=== PATIENT | male | born 1975 | race Caucasian/White ===

== ENCOUNTER 2017-06-19 15:27 | Emergency (ER) | payer OTHER ==
[~2017-06-19] VITALS: Ht 182.9 cm; Wt 92.5 kg
[~2017-06-19 15:27] MED LIST: triumeq PO
[2017-06-19 15:36] VITALS: Ht 182.9 cm; Wt 92.5 kg
[2017-06-19] MEDS ORDERED: BUPIVACAINE 0.25% (MPF) 10 ML 10 ML VIAL INJ ONE (16:30)
[2017-06-19 16:53] LABS: BASOPHIL # 0.1 10^3/ul (0.0-0.1); BASOPHILS % 0.6 % (0.0-2.0); EOSINOPHILS # 0.1 10^3/ul (0.0-0.5); EOSINOPHILS % 1.2 % (0.0-7.0); HEMATOCRIT 50.8 % (42.0-52.0); LYMPHOCYTES # 1.8 10^3/ul (0.8-2.9); LYMPHOCYTES % 20.7 % (15.0-51.0); MEAN CORPUSCULAR HGB CONC 37.4 g/dl (32.0-37.0); MEAN CORPUSCULAR VOLUME 88.3 fl (82.0-101.0); MEAN PLATELET VOLUME 9.7 fl (7.4-10.4); MONOCYTE # 0.8 10^3/ul (0.3-0.9); MONOCYTES % 9.4 % (0.0-11.0); NEUTROPHILS % 67.7 % (39.0-77.0); PLATELET COUNT 189 10^3/UL (140-415); RED BLOOD COUNT 5.75 10^6/ul (4.70-6.10); RED CELL DISTRIBUTION WIDTH 11.2 % (11.5-14.5); WHITE BLOOD COUNT 8.5 10^3/ul (4.8-10.8)
[2017-06-19 17:19] LABS: ALBUMIN 5.1 g/dl (3.3-4.9); ALBUMIN/GLOBULIN RATIO 1.37; BILIRUBIN,INDIRECT 0.6 mg/dl (0-1.1); BILIRUBIN,TOTAL 0.6 mg/dl (0.2-1.3); CALCIUM 9.7 mg/dl (8.4-10.2); CREATININE 0.75 mg/dl (0.61-1.24); POTASSIUM 4.1 mmol/L (3.5-5.1); TOTAL PROTEIN 8.8 g/dl (6.1-8.1)
--- NOTE | 2017-06-19 17:21 | RADRPT ---
PROCEDURE: XR Hip. CLINICAL INDICATION: 41 years of age, male. Pain and weakness. History of HIV and diabetes. TECHNIQUE: Two views of the left hip. COMPARISON: None available. FINDINGS: Normal alignment. Negative for evidence of acute fracture. Normal bone mineralization and no focal bone lesions. Joint space is preserved without evidence of arthritis. Negative for significant soft tissue abnormality. IMPRESSION: Unremarkable x-ray of the left hip. Cause for left hip pain is not evident. If there is clinical co ncern for occult fracture, recommend CT or MRI. RPTAT: HCTS Physician Jitendra Date Time Electronically viewed and signed by Physician Jitendra on 06/19/2017 17:21 CS/
--- NOTE | 2017-06-19 17:48 | RADRPT ---
PROCEDURE: CT LUMBAR SPINE WITHOUT CONTRAST: CLINICAL INDICATION: 41 years of age male. Low back pain. History of HIV and diabetes. . COMPARISON: None available. TECHNIQUE: CT of the lumbar spine was performed without intravenous contrast. Coronal and sagittal r eformatted images were obtained from the axial source images. Images were reviewed on a high-resolut [employer] PACS workstation. Dose information: Based on a 32 cm phantom, the estimated radiation dose (CTDIvol mGy) for each seri es in this exam is 25. The estimated cumulative dose (DLP mGy-cm) is 799. One or more of the following dose reduction techniques were used: - Automated exposure control. - Adjustment of the mA and/or kV according to patient size. - Use of iterative reconstruction technique. FINDINGS: There are small rudimentary ribs at T12. Using this numbering system, there are 5 non-rib bearing pepito mbar-type vertebra and the lumbar spine is imaged from T12 to the sacrum. Alignment: Normal. Vertebrae: Vertebral bodies and posterior elements are intact without acute fracture. Vertebral body heights are maintained. Bone mineral density appears normal. No suspicious bone lesio ns. T12-L1: No significant degenerative change. Negative for stenosis or nerve root compression. L1-L2: No significant degenerative change. Negative for stenosis or nerve root compression. L2-L3: No significant degenerative change. Negative for stenosis or nerve root compression. L3-L4: No significant degenerative change. Negative for stenosis or nerve root compression. L4-L5: There is a mild broad-based posterior left paracentral disc protrusion that contacts the thec al sac anteriorly (4/74). Minimal central canal stenosis. Negative for nerve root compression. L5-S1: Mild degenerative disc disease with disc space narrowing and small posterior osteophytes. The re is mild disc bulging without stenosis or nerve root compression. Extravertebral soft tissues: Normal. Visualized abdomen and pelvis: Atherosclerosis aorta. No aneurysm. There is calcification of the vas deferens in keeping with diabetes. Additional comment: None. IMPRESSION: Mild degenerative disc disease in the lower lumbar spine at L4-5 and L5-S1. Stenosis is mild without evidence of nerve root compression. RPTAT: HCTS Claudiay Sadro, Physician Date Time Electronically viewed and signed by Silvia Casarez, Physician on 06/19/2017 17:48 CS/
[2017-06-19] MEDS ORDERED: ZOLP5TAB PO (18:06)
[2017-06-19] MEDS ORDERED: HYDR-906 PO (18:06)
--- NOTE | 2017-06-19 20:50 | ERD ---
ER Documentation Chief Complaint Date/Time DATE: 06/19/17 TIME: 20:34 Chief Complaint LEFT HIP PAIN SINCE FRIDAY,DIFFICULTY WALKING HPI 41-year-old male present is complaining of left hip pain 2 days. Patient stated that the pain had a sudden onset, is severe. The pain is not constant, worse when he is lying down. No pain when he is standing. Able to walk without pain. The pain starts from left groin and radiates down his left thigh. Yesterday he also started having pain from his left buttock that radiates down to his posterior left upper leg. Patient reports numbness of his left foot. In addition, patient reports right foot drop for the past 3 weeks. Patient has history of HIV, diabetes, and hypertension. He has not taking any medications for his medical conditions for the past year. Denies fever or chills. Denies injury or falls. Denies shortness of breath. Denies numbness or weakness anywhere else. ROS All systems reviewed and are negative except as per history of present illness. Medications Home Meds Active Scripts Hydrocodone/Acetaminophen ([place] 5-325 Tablet) 1 Each Tablet, 1 TAB PO Q6H Y for PAIN, #20 TAB Prov:SHARITA MARTIN NP 06/19/17 Zolpidem Tartrate* (Ambien*) 5 Mg Tablet, 5 MG PO HS Y for INSOMNIA, #7 TAB Prov:SHARITA MARTIN NP 06/19/17 [triumeq] No Conflict Check, 1 PO DAILY, #10 Prov:JONI MANCILLA MD 03/19/15 Allergies Allergies: Coded Allergies: Sulfa (Sulfonamide Antibiotics) (Verified Allergy, Intermediate, RASH, 06/19) PMhx/Soc HIV positive, diabetes, hypertension History of Surgery: No Anesthesia Reaction: No Hx Neurological Disorder: No Hx Respiratory Disorders: No Hx Cardiac Disorders: No Hx Psychiatric Problems: Yes (PSYCHIATRIC PROBLEMS) Hx Miscellaneous Medical Probl: No (HIV) Hx Alcohol Use: Yes (occassionally) Hx Substance Use: No Hx Tobacco Use: Yes (3/4 pack/day) Smoking Status: Current every day smoker Physical Exam Vitals Vital Signs Date Time Temp Pulse Resp B/P Pulse Ox O2 Delivery O2 Flow Rate FiO2 06/19/17 15:36 98.1 78 18 176/98 98 Physical Exam General: Well-developed, well-nourished, conscious and coherent, in no distress Skin: Warm and dry without rash, good texture and turgor Head: Normocephalic without evidence of trauma Eyes: Sclera and conjunctivae normal; pupils equal, round, and reactive to light; extraocular movements are intact Neck: Supple without meningismus or adenopathy. Carotids are equal. Trachea midline. No bruits or JVD Chest: Normal AP diameter. Good expansion without retractions. Nontender. Lungs are clear to auscultate bilaterally with good tidal volume Heart: Regular rate and rhythm. No murmur, rub, or gallops heard Abdomen: Soft and nontender without masses, guarding, or rebound. Bowel sounds are active. No hepatosplenomegaly Back: Without spinal or CVA tenderness. Palpating the left buttock triggers radiating pain down his left leg. Extremities: Full range of motion. Good strength bilaterally. No clubbing, cyanosis, or edema. Peripheral pulses are intact. Neuro: Alert and oriented 4, GCS 15. Cranial nerves grossly intact. Motor and sensory exams nonfocal. Moves all extremities. Speech clear. Gait normal Result Diagram: 06/19/17 1640 06/19/17 1640 Results 24 hrs Laboratory Tests Test 06/19/17 16:40 White Blood Count 8.510^3/ul Red Blood Count 5.7510^6/ul Hemoglobin 19.0g/dl Hematocrit 50.8% Mean Corpuscular Volume 88.3fl Mean Corpuscular Hemoglobin 33.0pg Mean Corpuscular Hemoglobin Concent 37.4g/dl Red Cell Distribution Width 11.2% Platelet Count 33032^3/UL Mean Platelet Volume 9.7fl Neutrophils % 67.7% Lymphocytes % 20.7% Monocytes % 9.4% Eosinophils % 1.2% Basophils % 0.6% Nucleated Red Blood Cells % 0.0/100WBC Neutrophils # (Manual) 5.810^3/ul Lymphocytes # 1.810^3/ul Monocytes # 0.810^3/ul Eosinophils # 0.110^3/ul Basophils # 0.110^3/ul Nucleated Red Blood Cells # 0.010^3/ul Sodium Level 137mmol/L Potassium Level 4.1mmol/L Chloride Level 102mmol/L Carbon Dioxide Level 22mmol/L Anion Gap 17 Blood Urea Nitrogen 12mg/dl Creatinine 0.75mg/dl Glucose Level 237mg/dl Calcium Level 9.7mg/dl Total Bilirubin 0.6mg/dl Direct Bilirubin 0.00mg/dl Indirect Bilirubin 0.6mg/dl Aspartate Amino Transf (AST/SGOT) 31IU/L Alanine Aminotransferase (ALT/SGPT) 46IU/L Alkaline Phosphatase 44IU/L Total Protein 8.8g/dl Albumin 5.1g/dl Globulin 3.70g/dl Albumin/Globulin Ratio 1.37 Current Medications Medications (Trade) Dose Ordered Sig/Gregg Route PRN Reason Start Time Stop Time Status Last Admin Dose Admin Bupivacaine HCl (Marcaine 0.25% (Mpf) 10 ml) 10 ml ONCE ONCE INJ 06/19/17 16:30 06/19/17 16:31 DC 06/19/17 17:06 PROCEDURE: XR Hip. CLINICAL INDICATION: 41 years of age, male. Pain and weakness. History of HIV and diabetes. TECHNIQUE: Two views of the left hip. COMPARISON: None available. FINDINGS: Normal alignment. Negative for evidence of acute fracture. Normal bone mineralization and no focal bone lesions. Joint space is preserved without evidence of arthritis. Negative for significant soft tissue abnormality. IMPRESSION: Unremarkable x-ray of the left hip. Cause for left hip pain is not evident. If there is clinical concern for occult fracture, recommend CT or MRI. RPTAT: HCTS Physician Jitendra Date Time Electronically viewed and signed by Physician Jietndra on 06/19/2017 17: 21 CS/ CC: SHARITA MARTIN NP PROCEDURE: CT LUMBAR SPINE WITHOUT CONTRAST: CLINICAL INDICATION: 41 years of age male. Low back pain. History of HIV and diabetes. . COMPARISON: None available. TECHNIQUE: CT of the lumbar spine was performed without intravenous contrast. Coronal and sagittal reformatted images were obtained from the axial source images. Images were reviewed on a high-resolution PACS workstation. Dose information: Based on a 32 cm phantom, the estimated radiation dose ( CTDIvol mGy) for each series in this exam is 25. The estimated cumulative dose ( DLP mGy-cm) is 799. One or more of the following dose reduction techniques were used: - Automated exposure control. - Adjustment of the mA and/or kV according to patient size. - Use of iterative reconstruction technique. FINDINGS: There are small rudimentary ribs at T12. Using this numbering system, there are 5 non-rib bearing lumbar-type vertebra and the lumbar spine is imaged from T12 to the sacrum. Alignment: Normal. Vertebrae: Vertebral bodies and posterior elements are intact without acute fracture. Vertebral body heights are maintained. Bone mineral density appears normal. No suspicious bone lesions. T12-L1: No significant degenerative change. Negative for stenosis or nerve root compression. L1-L2: No significant degenerative change. Negative for stenosis or nerve root compression. L2-L3: No significant degenerative change. Negative for stenosis or nerve root compression. L3-L4: No significant degenerative change. Negative for stenosis or nerve root compression. L4-L5: There is a mild broad-based posterior left paracentral disc protrusion that contacts the thecal sac anteriorly (4/74). Minimal central canal stenosis. Negative for nerve root compression. L5-S1: Mild degenerative disc disease with disc space narrowing and small posterior osteophytes. There is mild disc bulging without stenosis or nerve root compression. Extravertebral soft tissues: Normal. Visualized abdomen and pelvis: Atherosclerosis aorta. No aneurysm. There is calcification of the vas deferens in keeping with diabetes. Additional comment: None. IMPRESSION: Mild degenerative disc disease in the lower lumbar spine at L4-5 and L5-S1. Stenosis is mild without evidence of nerve root compression. RPTAT: HCTS Physician Jitendra Date Time Electronically viewed and signed by Physician Jitendra on 06/19/2017 17: 48 CS/ CC: SHARITA MARTIN [employer] FINISHER Procedures/MDM 41-year-old male with history of HIV positive, diabetes, and hypertension presented ED with sciatic pain 2 days. X-ray of the left hip is unremarkable. CT of the lumbar spine showed mild degenerative disc disease in the lower lumbar spine, and mild stenosis without stenosis is mild without evidence of nerve root compression. I suspect that his sciatic pain is due to muscle spasm rather than disc herniation. I doubt spinal fracture, subluxation, or disc herniation. I doubt spinal epidural abscess, cauda equina syndrome. However, patient is HIV positive and not being treated at this time, I have high concern for possible advancement of HIV/AIDS progression that may have caused patient's symptoms. Patient given referral to neurologist, Dr. Stanford for neurology follow-up. Patient also encouraged to follow-up with his PCP to resume HIV and diabetes treatment. Procedure note: Trigger point injection Trigger point injection performed by me. 10 mL of bupivacaine is injected into left buttock. Total number muscle groups injected: 1. Patient reports improvement of pain after the trigger point injection. Patient appears well, stable for discharge and outpatient management. Medical decision making shared with patient and family. Education provided to patient and family. Patient and family expressed understanding of the plan. Medications on discharge: [place]. Follow-up: Primary care provider in 2-3 days or return to ED if worse. Disclaimer: Inadvertent spelling and grammatical errors are likely due to EHR/ dictation software use and do not reflect on the overall quality of patient care. Also, please note that the electronic time recorded on this note does not necessarily reflect the actual time of the patient encounter. Departure Diagnosis: Primary Impression: Sciatica Condition: Stable Patient Instructions: Understanding Sciatica Referrals: CLARA STANFORD MD [facility] Hours: Fri-Fri 9:00 AM - 5:00 PM Additional Instructions: Call your primary care doctor TOMORROW for an appointment during the next 2-3 days.See the doctor sooner or return here if your condition worsens before your appointment time. Follow up with a neurologist. SHARITA MARTIN NP Jun 19, 2017 20:45
== END 2017-06-19 18:17 | disposition home or self-care (01) ==
LOC: FTE 15:27
DX: M54.32 Sciatica, left side (principal); E11.9 Type 2 diabetes mellitus without complications; I10 Essential (primary) hypertension; F17.210 Nicotine dependence, cigarettes, uncomplicated
CPT/HCPCS: 36415; 72131; 73510; 80053; 85025

== ENCOUNTER 2017-06-21 22:18 | Emergency (ER) | payer OTHER ==
[~2017-06-21] VITALS: Wt 92.0 kg
[~2017-06-21 22:18] MED LIST changes: +HYDR-906 PO; +ZOLP5TAB PO
--- NOTE | 2017-06-21 23:58 | ERD ---
ER Documentation Chief Complaint Date/Time DATE: 06/21/17 TIME: 23:50 Chief Complaint Hip pain since HPI This 41-year-old male patient presents to emergency department for lumbar pain, sciatica pain radiating down left hip, buttocks, down to toes. Patient has documentation of mild degenerative disc disease in the lower lumbar spine at L4- 5 and L5-S1 stenosis is mild without evidence of nerve root compression. As read from CT lumbar spine without contrast from 06/19/2017.Spinal stenosis and herniated disk pain here treated with [place] 5/325, medication not working, pt has appointment with [facility]. pt report that the pain just started last week, w/o injury. pt radiates down leg and to toes ROS All systems reviewed and are negative except as per history of present illness. Medications Home Meds Active Scripts Hydrocodone/Acetaminophen ([place] 5-325 Tablet) 1 Each Tablet, 1 TAB PO Q6H Y for PAIN, #20 TAB Prov:SHARITA MARTIN NP 06/19/17 Zolpidem Tartrate* (Ambien*) 5 Mg Tablet, 5 MG PO HS Y for INSOMNIA, #7 TAB Prov:SHARITA MARTIN NP 06/19/17 [triumeq] No Conflict Check, 1 PO DAILY, #10 Prov:JONI MANCILLA MD 03/19/15 Allergies Allergies: Coded Allergies: Sulfa (Sulfonamide Antibiotics) (Verified Allergy, Intermediate, RASH, 06/19) PMhx/Soc History of Surgery: No Anesthesia Reaction: No Hx Neurological Disorder: No Hx Respiratory Disorders: No Hx Cardiac Disorders: No Hx Psychiatric Problems: Yes (PSYCHIATRIC PROBLEMS) Hx Miscellaneous Medical Probl: No (HIV, spinal stenosis, peripheral neuropathy , herniated disk, chronic pain) Hx Alcohol Use: Yes (occassionally) Hx Substance Use: No Hx Tobacco Use: Yes (3/4 pack/day) Smoking Status: Current every day smoker Physical Exam Vitals Vital Signs Date Time Temp Pulse Resp B/P Pulse Ox O2 Delivery O2 Flow Rate FiO2 06/21/17 22:45 98.8 118 20 158/100 100 Vitals stable, triage notes reviewed Physical Exam Const: Well-nourished well-appearing well-hydrated male patient no acute distress Head: Atraumatic Eyes: Normal Conjunctiva ENT: Normal External Ears, Nose and Mouth. Neck: Full range of motion..~ No meningismus. Resp: Clear to auscultation bilaterally Cardio: Regular rate and rhythm, no murmurs Abd: Soft, non tender, non distended. Normal bowel sounds Skin: No petechiae or rashes Back Exam: Skin: No bruising or rash Compartments: Soft Motor: Full range of motion, Palpating the left buttock triggers radiating pain down his left leg. Sensation: Intact to light touch throughout Bones: Without spinal or CVA tenderness. Ext: No cyanosis, or edema Neur: Awake and alert Psych: Normal Mood and Affect Results 24 hrs Current Medications Medications (Trade) Dose Ordered Sig/Gregg Route PRN Reason Start Time Stop Time Status Last Admin Dose Admin Oxycodone/ Acetaminophen (Percocet (5/ 325)) 1 tab ONCE ONCE PO 06/22/17 00:00 06/22/17 00:01 DC 06/22/17 00:12 Procedures/MDM This 41-year-old male patient, HIV positive, presents to emergency department for pain control. Patient was here on 06/19/2017 received trigger point injection in [place], as well as [facility]. Patient reports no current is not helping with pain control. Has an appointment with [facility] [place] in 2 days. Is requesting stronger pain medication. Patient received a full evaluation to rule out any worsening pathology related to HIV status on his last visit, CAT scan documents degenerative disc disease, disc space narrowing with osteophytes L4-L5, L5-S1. No root compression was documented. I do not feel that CT needs to be repeated. Patient given Percocet 5/325 will be discharged home with Percocet 20 count. Instructed that he would not be provided anymore pain medication. Patient is stable with no new complaints during ER course, clinically there is no current evidence to suggest cauda equina syndrome, spinal abscess or any other emergent condition appearing to require further evaluation or hospitalization. I feel the patient is stable for discharge at this time. I have discussed results, examination findings, the treatment plan with the patient and family present prior to discharge. Indications for emergent reevaluation, side effects of medication were also discussed. All questions were answered. Patient verbalizes understanding and agrees with plan of care. Departure Diagnosis: Primary Impression: Spinal stenosis Spinal region: lumbosacral Qualified Code: M48.07 - Spinal stenosis of lumbosacral region Condition: Good Patient Instructions: Back Pain W/ Sciatica Additional Instructions: Thank you for for coming to [facility] for your care today. Please ask your nurse or provider if you have questions about your care today and do not leave until all your questions have been answered. Please use any medications given as directed and follow-up with your doctor (or the doctor you were referred to) in the next 2-3 days. If you do not have a primary care doctor you may follow up at the [facility] [place], [place] (listed below). You may also use motrin and tylenol as needed for fever and/or pain unless instructed otherwise by your provider or nurse. Indications for more urgent follow-up have been discussed, but you may return to the Emergency Department at ANY time for any worrisome or worsening symptoms. If you have abdominal pain, please know that no test or exam you received is perfect and you should follow up within 8 hours for continued pain. If you had any imaging studies today, such as an X-Ray or CT Scan, these studies will be reviewed later by a radiologist. You will be called if there are important findings that were not identified today, so make sure the contact information you provided at registration is correct. If you received any narcotic pain control medicine today, such as Vicodin, Morphine or Dilaudid, your coordination and judgment may be affected for a number of hours. Please do not drive or operate heavy machinery, and you may want someone to assist you at home. If you were given a prescription for narcotic medication, be aware that it is very addictive- use sparingly and only if necessary. FERMIN MARIN Jun 21, 2017 23:58
[2017-06-22] MEDS ORDERED: OXYCODONE/ACETAMINOPHEN (5/325) TAB PO ONE
[2017-06-22] MEDS ORDERED: OXYC-279 PO (01:25)
[2017-06-22 01:32] VITALS: BP 156/90; PULSE 100; RESP 16; TEMP 98.6
== END 2017-06-22 01:34 | disposition home or self-care (01) ==
LOC: FTE 22:18
DX: M48.07 Spinal stenosis, lumbosacral region (principal); F17.210 Nicotine dependence, cigarettes, uncomplicated
CPT/HCPCS: 99283

== ENCOUNTER 2017-06-26 09:55 | Emergency (ER) | payer SELFPAY ==
[~2017-06-26] VITALS: Ht 180.3 cm; Wt 94.0 kg
[~2017-06-26 09:55] MED LIST changes: +OXYC-279 PO
[2017-06-26 10:17] VITALS: Ht 180.3 cm; Wt 94.0 kg
[2017-06-26] MEDS ORDERED: METF500T4 PO (22:30)
[2017-06-26] MEDS ORDERED: LISI10TA2 PO (22:30)
[2017-06-26] MEDS ORDERED: IBUP-1542 PO (22:32)
[2017-06-26] MEDS ORDERED: CLIN-73 PO (22:32)
== END 2017-06-26 11:10 | disposition left against medical advice (07) ==
LOC: FTE 09:55
DX: Z53.21 Procedure and treatment not carried out due to patient leaving prior to being seen by health care provider (principal)

== ENCOUNTER 2017-06-26 20:12 | Emergency (ER) | payer OTHER ==
[~2017-06-26] VITALS: Ht 182.9 cm; Wt 80.0 kg
[2017-06-26 20:15] VITALS: Ht 182.9 cm; Wt 80.0 kg
[2017-06-26] MEDS ORDERED: KETOROLAC 30 MG INJ IV STA (22:19)
[2017-06-26] MEDS ORDERED: LISI10TA2 PO (22:30)
[2017-06-26] MEDS ORDERED: CLINDAMYCIN 600 MG/D5W (PMX) 50 ML IVPB SCH (22:30)
[2017-06-26] MEDS ORDERED: METF500T4 PO (22:30)
--- NOTE | 2017-06-26 22:30 | ERD ---
ER Documentation Chief Complaint Date/Time DATE: 06/26/17 TIME: 22:26 Chief Complaint abcess @ groin area HPI 41-year-old male presents to emergency department for complaints of right swelling that started 3 weeks ago, patient states that he is tried to squeeze the area, was able to squeeze pustular discharge. Patient continues to have pain and redness of affected area. Patient denies any fever or chills. Patient is diabetic. Patient describes the pain as sharp pain, 4/10 scale, as was upon touching the area. Patient denies any other symptoms ROS All systems reviewed and are negative except as per history of present illness. Medications Home Meds Active Scripts Ibuprofen* (Motrin*) 600 Mg Tab, 600 MG PO Q6H Y for PAIN AND OR ELEVATED TEMP, #30 TAB Prov:TUNDE MELGAR NP 06/26/17 Clindamycin Hcl* (Clindamycin Hcl*) 300 Mg Capsule, 300 MG PO TID for 10 Days, CAP Prov:TUNDE MELGAR NP 06/26/17 Oxycodone HCl/Acetaminophen (Percocet 5-325 mg Tablet) 1 Each Tablet, 1 EACH PO Q8, #20 TAB Prov:TOMAS,FERMIN 06/22/17 Hydrocodone/Acetaminophen ([place] 5-325 Tablet) 1 Each Tablet, 1 TAB PO Q6H Y for PAIN, #20 TAB Prov:SHARITA MARTIN NP 06/19/17 Zolpidem Tartrate* (Ambien*) 5 Mg Tablet, 5 MG PO HS Y for INSOMNIA, #7 TAB Prov:SHARITA MARTIN NP 06/19/17 [triumeq] No Conflict Check, 1 PO DAILY, #10 Prov:JONI MANCILLA MD 03/19/15 Reported Medications Lisinopril* (Lisinopril*) Unknown Strength Tablet, PO DAILY, #30 TAB 06/26/17 Metformin* (Glucophage*) Unknown Strength Tab, PO BID, #20 TAB 06/26/17 Allergies Allergies: Coded Allergies: Sulfa (Sulfonamide Antibiotics) (Verified Allergy, Intermediate, RASH, 06/19) PMhx/Soc History of Surgery: No Anesthesia Reaction: No Hx Neurological Disorder: No Hx Respiratory Disorders: No Hx Cardiac Disorders: Yes (htn, dm) Hx Psychiatric Problems: Yes (PSYCHIATRIC PROBLEMS) Hx Miscellaneous Medical Probl: No (HIV, spinal stenosis, peripheral neuropathy , herniated disk, chronic pain) Hx Alcohol Use: Yes (occassionally) Hx Substance Use: No Hx Tobacco Use: Yes (3/4 pack/day) FmHx Family History: No coronary disease, No diabetes, No other Physical Exam Vitals Vital Signs Date Time Temp Pulse Resp B/P Pulse Ox O2 Delivery O2 Flow Rate FiO2 06/26/17 20:15 97.2 96 19 147/104 97 Physical Exam GENERAL: The patient is well developed and appropriate for usual state of health, in no apparent distress. CHEST: Clear to auscultation bilaterally. There are no rales, wheezes or rhonchi. HEART: Regular rate and rhythm. No murmurs, clicks, rubs or gallops. No S3 or S4. ABDOMEN: Soft, nontender and nondistended. Good bowel sounds. No rebound or guarding. No gross peritonitis. No gross organomegaly or masses. No Mejia sign or McBurney point tenderness. BACK: No midline or flank tenderness. EXTREMITIES: Equal pulses bilaterally. There is no peripheral clubbing, cyanosis or edema. No focal swelling or erythema. Full range of motion. Grossly neurovascularly intact. NEURO: Alert and oriented. Cranial nerves 2-12 intact. Motor strength in all 4 extremities with 5/5 strength. Sensation grossly intact. Normal speech and gait. SKIN: 2 x 3 cm erythematous indurated area in the right groin area, nonfluctuant at this time. Tender on palpation. There is no apparent petechia. The skin is warm and dry. HEMATOLOGIC AND LYMPHATIC: There is no evidence of excessive bruising or lymphedema. No gross cervical, axillary, or inguinal lymphadenopathy. Results 24 hrs Current Medications Medications (Trade) Dose Ordered Sig/Gregg Route PRN Reason Start Time Stop Time Status Last Admin Dose Admin Clindamycin HCl/ Dextrose (Cleocin 600 Mg/ D5W (Pmx)) 50 ml @ 50 mls/hr ONCE IVPB 06/26/17 22:30 06/26/17 23:29 Ketorolac Tromethamine (Toradol) 30 mg ONCE STAT IV 06/26/17 22:19 06/26/17 22:20 DC Ordered Cleocin and IV Toradol to be given given here in the emergency department for relief of pain and initial treatment of the abscess, upon calling pt for treatment, unable to be found, unable to contact, pt eloped, was stable prior to eloping. Procedures/MDM Medical Decision making: Patient symptoms leg is consistent with a soft tissue abscess, this time, no fluctuance, incision and drainage not indicated at this time, she is diabetic was treated with IV clindamycin was ordered here in emergency department and IV Toradol for pain but eloped prior to treatment, patient is not febrile at this time, appears well and is hemodynamically stable , no symptoms of any sepsis at this time. Patient was written Rx for clindamycin to go home with but didnt get paperworks because he eloped, is advised to return in 48 hours for reevaluation and recheck. Patient was advised to return to emergency department sooner for any worsening symptoms. Disposition: Home. Stable. Departure Diagnosis: Primary Impression: Soft tissue abscess Condition: Stable Patient Instructions: Abscess, Antiobiotic Treatment Only TUNDE MELGAR NP Jun 26, 2017 22:30
[2017-06-26] MEDS ORDERED: IBUP-1542 PO (22:32)
[2017-06-26] MEDS ORDERED: CLIN-73 PO (22:32)
== END 2017-06-26 22:55 | disposition left against medical advice (07) ==
LOC: FTE 20:12
DX: L02.214 Cutaneous abscess of groin (principal); I10 Essential (primary) hypertension; E11.9 Type 2 diabetes mellitus without complications; F17.210 Nicotine dependence, cigarettes, uncomplicated; Z79.84 Long term (current) use of oral hypoglycemic drugs
CPT/HCPCS: 99283

== ENCOUNTER 2017-08-05 09:15 | Observation (INO) | payer OTHER ==
[2017-08-05] VITALS (13 sets, daily range): BP systolic 140–175; BP diastolic 43–101; PULSE 86–112; RESP 10–19
[~2017-08-05] VITALS: Ht 182.9 cm; Wt 88.5 kg
[~2017-08-05 09:15] MED LIST changes: +CEFAZOLIN 2 GM/50 ML (PMX) 50 ML IVPB SCH; +CLIN-73 PO; +IBUP-1542 PO; +LACTATED RINGER'S 1,000 ML IV* SCH; +LISI10TA2 PO; +METF500T4 PO
[2017-08-05] MEDS ORDERED: METF1000 PO (09:47)
[2017-08-05] MEDS ORDERED: LISI10TA2 PO (09:47)
[2017-08-05] MEDS ORDERED: OXYC-209 PO (09:53)
[2017-08-05] MEDS ORDERED: CEFAZOLIN 1 GM INJ ONE (10:06)
[2017-08-05] MEDS ORDERED: PROPOFOL 20 ML ONE (10:06)
[2017-08-05] MEDS ORDERED: NEOSTIGMINE 3 MG/3 ML SYRINGE ONE (10:06)
[2017-08-05] MEDS ORDERED: ROCURONIUM 50 MG INJ ONE (10:06)
[2017-08-05] MEDS ORDERED: FENTAnyl 50 MCG/ML VIAL ONE (10:08)
[2017-08-05] MEDS ORDERED: MIDAZOLAM 1 MG/ML 2 ML INJ ONE (10:08)
[2017-08-05] MEDS ORDERED: ONDANSETRON 4 MG INJ ONE (10:09)
[2017-08-05] MEDS ORDERED: DEXAMETHASONE 4 MG/ML 1 ML INJ ONE (10:09)
[2017-08-05] MEDS ORDERED: SUGAMMADEX SODIUM 200 MG/2 ML VIAL IV ONE (11:37)
[2017-08-05] MEDS ORDERED: 1/2 NS + KCL 20 MEQ 1,000 ML IV SCH (11:52)
--- NOTE | 2017-08-05 11:52 | HPN ---
Date/Time of Note Date/Time of Note DATE: 08/05/17 TIME: 11:51 Interval H&P Admission Note Pt. seen H&P reviewed: No system changes SALVADOR BRIGHT PA-C Aug 05, 2017 11:52
[2017-08-05] MEDS ORDERED: ZOLPIDEM 5 MG TAB PO PRN (12:00)
[2017-08-05] MEDS ORDERED: NALOXONE (0.4 MG/ML) INJ IV PRN (12:00)
[2017-08-05] MEDS ORDERED: ONDANSETRON 4 MG INJ IV PRN ×2 (12:00→13:30)
[2017-08-05] MEDS ORDERED: HYDROmorphONE 0.5 MG/0.5 ML SYG IV PRN (12:00)
[2017-08-05] MEDS ORDERED: CEPASTAT LOZENGE MT PRN (12:00)
[2017-08-05] MEDS ORDERED: ACETAMINOPHEN 325 MG TAB PO PRN (12:00)
[2017-08-05] MEDS ORDERED: CYCLOBENZAPRINE 10 MG TAB PO PRN (12:00)
[2017-08-05] MEDS ORDERED: BISACODYL 10 MG SUPP PR PRN (12:00)
[2017-08-05] MEDS ORDERED: OXYCODONE/ACETAMINOPHEN (10/325) TAB PO PRN ×2 (12:00)
[2017-08-05] MEDS ORDERED: CEFAZOLIN 1 GM/50 ML (PMX) 50 ML IVPB SCH (12:00)
[2017-08-05] MEDS ORDERED: DIPHENHYDRAMINE 50 MG INJ IV PRN ×2 (12:00→13:30)
[2017-08-05] MEDS ORDERED: AL HYDROX/MG HYDROX/SIMETH 30 ML CUP PO PRN (12:00)
[2017-08-05] MEDS ORDERED: THROMBIN 5000 UNIT VIAL ONE (12:05)
[2017-08-05] MEDS ORDERED: SURGIFOAM POWDER 1 GM KIT ONE (12:05)
[2017-08-05] MEDS ORDERED: POLYMYXIN/BACITRACIN 1L IRRIG ONE (12:05)
[2017-08-05] MEDS ORDERED: BUPIVACAINE 0.5%/EPI (SDV) 30 ML INJ ONE (12:37)
[2017-08-05] MEDS ORDERED: LABETALOL HCL 20MG INJ ONE (12:59)
[2017-08-05] MEDS ORDERED: THROMBIN 5000 UNIT VIAL TOP ONE (13:04)
[2017-08-05] MEDS ORDERED: POLYMYXIN/BACITRACIN 1L IRRIG IRR ONE (13:04)
[2017-08-05] MEDS ORDERED: MEPERIDINE 25 MG INJ IV PRN (13:30)
[2017-08-05] MEDS ORDERED: hydrALAzine 20 MG INJ IV PRN (13:30)
[2017-08-05] MEDS ORDERED: HYDROmorphONE (0.2 MG/ML) 10ML SYG IV PRN (13:30)
[2017-08-05] MEDS ORDERED: MIDAZOLAM 1 MG/ML 2 ML INJ IV PRN (13:30)
[2017-08-05] MEDS ORDERED: LABETALOL HCL 20MG INJ IV PRN (13:30)
[2017-08-05] MEDS ORDERED: OXYCODONE/ACETAMINOPHEN (5/325) TAB PO PRN ×2 (13:30)
[2017-08-05] MEDS ORDERED: FENTAnyl 50 MCG/ML VIAL IV PRN ×3 (13:30)
[2017-08-05] MEDS ORDERED: EPHEDrine SULFATE 50 MG/5 ML SYG IV PRN (13:30)
[2017-08-05] MEDS ORDERED: ALBUTEROL 0.083% (NEB) 2.5 MG/3 ML AMP HHN PRN (13:30)
[2017-08-05] MEDS ORDERED: IPRATROPIUM (NEB) 0.5 MG/2.5 ML AMP HHN PRN (13:30)
[2017-08-05] MEDS ORDERED: TRIMETHOBENZAMIDE 100 MG/ML VIAL IM PRN (13:30)
[2017-08-05] MEDS ORDERED: BUPIVACAINE 0.25% (MPF) 30 ML INJ ONE (13:52)
[2017-08-05] MEDS ORDERED: HYDROmorphONE 0.2 MG/ML PCA ONE (14:43)
--- NOTE | 2017-08-05 14:49 | SIPON ---
Date/Time of Note Date/Time of Note DATE: 08/05/17 TIME: 14:44 Operative Report Preoperative Diagnosis Lumbosacral disc herniation with radiculopathy Postoperative Diagnosis Lumbosacral disc herniation with radiculopathy Operation/Procedure Performed Bilateral lumbosacral discectomy Surgeon see signature line certified ophthalmic surgical assistant MATHEW Chou Anesthesia: general Estimated blood loss: 10 - 50 ml's Transfusion Required none Specimen L5-S1 disc Grafts/Implants none Complications none TEQUILA PARK MD Aug 05, 2017 14:49
[2017-08-05] MEDS: HYDROmorphONE (0.2 MG/ML) 10ML SYG IV PRN ×6 (14:56→15:32)
--- NOTE | 2017-08-05 16:15 | RADRPT ---
PROCEDURE: Intraoperative imaging of the lumbar spine with fluoroscopy. CLINICAL INDICATION: Back pain. Intraoperative. TECHNIQUE: 6 images of the lumbar spine were obtained in the operating room with an image intensif ier. No radiologist was in attendance. Fluoroscopy time is 8.9 seconds. COMPARISON: No prior study is available for comparison. FINDINGS: For the purposes of this report, the last apparent true disc level is considered to be L5-S1. Based on this, the posterior surgical instrument is present overlying the L5-S1 level. IMPRESSION: 1. Intraoperative imaging of the lumbar spine. RPTAT: QQ .Abdias Rodriguez MD, Date Time Electronically viewed and signed by .Abdias Rodriguez MD, on 08/05/2017 16:15 .R/
--- NOTE | 2017-08-05 16:32 | CONS ---
Date/Time of Note Date/Time of Note DATE: 08/05/17 TIME: 16:30 Assessment/Plan Assessment/Plan Problems: (1) Status post lumbar microdiscectomy Onset Date: ~ 08/05/2017 Status: Acute Comment: Stable postop. Concur with discharge home (2) Diabetes mellitus type 2 in nonobese Status: Chronic Comment: Stable postop concur with discharge home (3) Essential hypertension Status: Chronic Comment: Stable postop concur with discharge home Consultation Date/Type/Reason Admit Date/Time Aug 05, 2017 at 11:56 Initial Consult Date August 05, 2017 Type of Consultation: Internal medicine Reason for Consultation Postop care diabetes; hypertension; HIV disease Referring Provider: TEQUILA LEYVA MD 24 HR Interval Summary Free Text/Dictation 41-year-old male with significant anxiety disorder who is status post spinal surgery. He has been on the floor roughly 1/2 hour as inform the staff that he wishes exorcises option for being discharged today. Please note Dr. Leyva the surgeon had actually given that to the patient as an option. Constitutional: no complaints Detailed Summary ENT: no complaints Respiratory: no complaints Cardiovascular: no complaints Gastrointestinal: no complaints Exam/Review of Systems Vital Signs Vitals Vital Signs Date Time Temp Pulse Resp B/P Pulse Ox O2 Delivery O2 Flow Rate FiO2 08/05/17 15:43 98 16 142/70 95 Room Air 08/05/17 14:57 98.2 08/05/17 14:48 2.0 Exam Constitutional: alert, oriented Respiratory: clear to auscultation, normal air movement Cardiovascular: nl pulses, regular rate and rhythm Neurological: FOOT AND ANKLE SURGEON II-XII intact, nl mental status, nl speech, nl strength, other Results Results 24 hrs Laboratory Tests Test 08/05/17 09:48 Bedside Glucose 172 Medications Medications Current Medications Lactated Ringer's 1,000 ml @ 20 mls/hr Q24H IV* ; Start 08/05/17 at 06:00; Stop 08/07/17 at 07:59 Potassium Chloride/Sodium Chloride (1/2 NS + KCl 20 Meq) 1,000 ml @ 100 mls/hr Q10H IV ; Start 08/05/17 at 11:52 Oxycodone/ Acetaminophen (Endocet (10/ 325)) 1 tab Q4H PRN PO PAIN LEVEL 1-5; Start 08/05/17 at 12:00 Oxycodone/ Acetaminophen (Endocet (10/ 325)) 2 tab Q4H PRN PO PAIN LEVEL 6-10; Start 08/05/17 at 12:00 Hydromorphone HCl 0.2 mg 0.2 mg Q1H PRN IV BREAKTHROUGH PAIN; Start 08/05/17 at 12:00 Cefazolin Sodium (Ancef 1 Gm/50 ml (Pmx)) 50 ml @ 100 mls/hr Q8H IVPB ; Start 08/05/17 at 12:00; Stop 08/06/17 at 04:29 Ondansetron HCl (Zofran Inj) 4 mg Q6H PRN IV NAUSEA AND/OR VOMITING; Start at 12:00 Bisacodyl (Dulcolax Supp) [address] CONSTIPATION; Start 08/05/17 at 12:00 Docusate Sodium (Colace) 100 mg BID PO ; Start 08/05/17 at 21:00 Al Hydrox/Mg Hydrox/Simethicone (Mag-Al Plus) 15 ml Q6H PRN PO CONSTIPATION/ DYSPEPSIA; Start 08/05/17 at 12:00 Acetaminophen (Tylenol Tab) 650 mg Q4H PRN PO PHIPPS OR TEMP GREATER THAN 101.3F; Start 08/05/17 at 12:00 Cyclobenzaprine HCl (Flexeril) 10 mg TID PRN PO MUSCLE SPASMS; Start 08/05/17 at 12:00 Phenol (Cepastat Lozenge) 1 lozenge PRN PRN MT SORE THROAT; Start 08/05/17 at 12:00 Diphenhydramine HCl (Benadryl) 25 mg Q6H PRN IV ITCHING; Start 08/05/17 at 12: 00 Naloxone HCl (Narcan) 0.2 mg Q2M PRN IV RR 8 BREATHS/MIN OR LESS; Start at 12:00 GIULIANA MCFARLAND MD Aug 05, 2017 16:32
--- NOTE | 2017-08-05 17:53 | OPR ---
DATE OF OPERATION: 08/05/2017 PREOPERATIVE DIAGNOSES: 1. Bilateral L5-S1 disk herniation with footdrop and radiculopathy. 2. Epidural lipomatosis and stenosis. POSTOPERATIVE DIAGNOSES: 1. Bilateral L5-S1 disk herniation with footdrop and radiculopathy. 2. 2. Epidural lipomatosis and stenosis. PROCEDURES: 1. Bilateral L5 hemilaminotomy. 2. Bilateral L5-S1 lumbar microdiskectomy. 3. Intraoperative neuromonitoring (1.5 hours). 4. Use of operative microscope. 5. Use of C-arm fluoroscopy with interpretation without radiologist present. PRIMARY SURGEON: Johnnie Leyva MD BARROW WORKER HELPER: MATHEW Chou. NEED FOR BUTTERMILK DRIER OPERATOR: NEED FOR BUTTERMILK DRIER OPERATOR: During this spinal surgical procedure, m y guest services assistant was used to retract and protect the spinal nerves and dural sac. My guest services assistant also empl oyed the suction catheters to evacuate blood from the surgical field to improve visualization of the neural structures. The guest services assistant was medically necessary to facilitate the completion of the surge ry in a safe and expeditious manner. State of [place] regulations, as well as hospital bylaws, p reclude the use of non-licensed health care personnel, such as operating room technicians, to perfor m these functions. FINDINGS: Neuromonitoring at the start of the case revealed bilateral L4 amplitude down 60%, bilate ral L5 and S1 amplitudes were quite low. At end of the case, all nerve signals returned to normal. The patient had herniations at L5-S1 bilaterally, worse on the right. He also had epidural lipomat osis. ESTIMATED BLOOD LOSS: 40 mL. DRAINS: None. SPECIMENS: L5-S1 disk. COMPLICATIONS OF PROCEDURES: None. ANESTHESIOLOGIST: Dr. Gonzalez. TYPE OF ANESTHESIA: General. INDICATIONS FOR PROCEDURE: This is a 41-year-old gentleman with lumbosacral radiculopathy in the se tting of disk herniation at L5-S1. He failed nonoperative measures; therefore, I recommend proceedi ng with the above-mentioned surgery. Preoperatively, we discussed the risks, benefits and alternati ves. He understood and wished to proceed. DESCRIPTION OF PROCEDURE IN DETAIL: The patient was identified in the preoperative holding area, ta an to the operating room where he was successfully placed under general anesthesia. He was given A ncef antibiotics. Neuromonitoring was utilized during the procedure to include SSEP, MEP and EMG. This was performed by [employer]. Start time was 1 p.m. Closure time was 2:30 p.m. The back was prepped and draped in usual sterile fashion. Using the sterile fluoroscope, I identified the i ncision site. I anesthetized the skin with Marcaine and epinephrine. Incision was then made over t he L5-S1 level. Incision was taken down to the dorsal fascia which was incised with Bovie cautery. I then subperiosteally dissected the L5 and S1 lamina bilaterally. Kerrison was placed in what was felt to be the L5 lamina, and repeat lateral C-arm image was obtained to confirm the correct levels . Once this was confirmed, microscope was brought in, and a left-sided hemilaminotomy was performed at L5 and a right-sided hemilaminotomy was performed at L5. Ligamentum flavum was sharply dissecte d on both sides. Epidural lipomatosis was encountered bilaterally which was removed. This was exte nding into the S1 foramen, and I was able to remove the epidural lipomatosis to decompress the nerve root. Initially, I then made an annulotomy on the left side at L5-S1 followed by limited microdisk ectomy. I then turned my attention to the right side. Again, my guest services assistant retracted neural element s medially under the microscope, and I made an annulotomy followed by a diskectomy. There was more herniation seen on the right side. Once this was done, all nerve signals returned to normal. I irr igated the wound. Valsalva maneuver was performed, and there was no leak of CSF. Hemostasis was ac hieved with bipolar cautery and Surgifoam. The wound was dry and, therefore, I elected not to place a drain. Retractors were removed, and I closed the deep fascia with #1 Vicryl stitch. I closed t he subcutaneous tissue with 2-0 Vicryl stitch. I injected plain Marcaine. A 4-0 Monocryl closure w as then performed. Dermabond was then applied. The patient was awakened from anesthesia and taken to the recovery room in stable condition. Lap, sponge and instrument counts were correct x2. There were no apparent complications during the procedure. The patient will be admitted to the orthopedic long for routine postoperative care to include pain c ontrol, neurovascular checks, antibiotics and physical therapy. Dictated By: JOHNNIE SANDY/JANESSA Conf#: [id number] DID#: [id number]
[2017-08-05] MEDS ORDERED: DOCUSATE SODIUM 100 MG CAP PO SCH (21:00)
--- NOTE | 2017-08-12 06:15 | DS ---
DATE OF ADMISSION: 08/05/2017 DATE OF DISCHARGE: 08/05/2017 ADMITTING DIAGNOSIS: Spinal stenosis. DISCHARGE DIAGNOSIS: Spinal stenosis. PROCEDURE: Patient taken to the operating room on 08/05/2017 and underwent lumbar decompression. HOSPITAL COURSE: The patient was admitted to the orthopedic long after undergoing the above procedu re. On postoperative day zero, he was deemed stable for discharge with followup arranged with the chana sheikh. Dictated By: TEQUILA SANDY/JANESSA Conf#: [id number] DID#: [id number]
== END 2017-08-05 16:55 | disposition home or self-care (01) ==
LOC: SDS 09:15 → EDSTATUS 11:00 → REC 11:56 → SDS 11:56 → MS1 16:00
PROVIDERS: ADMIT Specialist; ATTEND Specialist
DX: M51.17 Intervertebral disc disorders with radiculopathy, lumbosacral region (principal); M21.372 Foot drop, left foot; M21.371 Foot drop, right foot; E88.2 Lipomatosis, not elsewhere classified; M48.07 Spinal stenosis, lumbosacral region; E11.9 Type 2 diabetes mellitus without complications; I10 Essential (primary) hypertension; Z88.2 Allergy status to sulfonamides
CPT/HCPCS: 63030; 72110; 82962; 86999; 99217; G0378; J0690; J1100; J1170; J2250; J2405; J3010; J3480; J2710; J7120